=== PATIENT | male | born 1950 | race Caucasian/White ===

== ENCOUNTER 2019-03-31 11:37 | Emergency (ER) | payer MEDICARE ==
[~2019-03-31] VITALS: Ht 167.6 cm; Wt 58.1 kg
--- NOTE | 2019-03-31 12:06 | NUR ---
pt to room assumed care. as
[2019-03-31] MEDS ORDERED: SODIUM CHLORIDE 0.9% 1,000ML IVBOLUS ONE (12:30)
[2019-03-31] MEDS ORDERED: MORPHINE SULFATE 4 MG/ML, 1ML IVPush PRN (12:30)
[2019-03-31] MEDS ORDERED: ONDANSETRON 2MG/ML, 2ML IVPush ONE (12:30)
[2019-03-31 12:31] LABS: BASOPHILS # (AUTO) 0.01 x10^3/uL (0-0.1); BASOPHILS % (AUTO) 0 % (0-1); EOSINOPHILS # (AUTO) 0.07 x10^3/uL (0-0.4); EOSINOPHILS % (AUTO) 1 % (1-7); LYMPHOCYTES # (AUTO) 0.64 x10^3/uL (1-3.4); LYMPHOCYTES % (AUTO) 7 % (22-44); MD NO; MEAN CORPUSCULAR HEMOGLOBIN 30.8 pg (27.5-34.5); MEAN CORPUSCULAR HGB CONC 33.3 g/dL (33.2-36.2); MEAN CORPUSCULAR VOLUME 92.7 fL (81-97); MEAN PLATELET VOLUME 9.2 fL (7.4-10.4); MONOCYTES # (AUTO) 0.59 x10^3/uL (0.2-0.8); MONOCYTES % (AUTO) 6 % (2-9); NEUTROPHILS % (AUTO) 86 % (42-75); PLATELET COUNT 210 x10^3/uL (130-400); RED BLOOD COUNT 5.56 x10^6/uL (4.38-5.82); RED CELL DISTRIBUTION WIDTH 13.5 % (9.4-14.8)
[2019-03-31 12:42] LABS: ALANINE AMINOTRANSFERASE 20 U/L (12-78); ALBUMIN 4.1 g/dL (3.4-5.0); ANION GAP 8 mmol/L (5-15); CALCIUM 9.2 mg/dL (8.5-10.1); CHLORIDE 104 mmol/L (98-107)
[2019-03-31 12:45] LABS: ALKALINE PHOSPHATASE 94 U/L (45-117); BILIRUBIN,TOTAL 0.8 mg/dL (0.2-1.0); CREATININE 1.36 mg/dL (0.7-1.3); TOTAL PROTEIN 8.8 g/dL (6.4-8.2)
--- NOTE | 2019-03-31 12:48 | NUR ---
piv est labs sent cxr pending. pt made aware of need for ua. vss. call [facility] in reach. as
[2019-03-31 12:51] LABS: RAPID INFLUENZA A Negative (Negative); RAPID INFLUENZA B Negative (Negative)
[2019-03-31] MEDS ORDERED: MORPHINE SULFATE 4 MG/ML, 1ML ONE (13:19)
[2019-03-31] MEDS ORDERED: ONDANSETRON 2MG/ML, 2ML ONE (13:19)
--- NOTE | 2019-03-31 13:26 | NUR ---
pt c/o yarbrough, meds per mar. need ua. pt has urinal. call [facility] in reach. as
--- NOTE | 2019-03-31 13:53 | NUR ---
ua sent. yarbrough resolved. as
[2019-03-31 14:00] LABS: MICROSCOPIC NOT IND
[2019-03-31 14:08] LABS: CULTURE INDICATED? NO
[2019-03-31 14:52] VITALS: BP 107/68
== END 2019-03-31 14:54 | disposition home or self-care (01) ==
LOC: ED 12:45
DX: E86.0 Dehydration (principal); R05 Cough; R09.81 Nasal congestion; R51 Headache
CPT/HCPCS: 36415; 71045; 80053; 81003; 83605; 84145; 85025; 87040; 87400; 96361; 96374; 96375; 99284; J2270; J2405; J7030